=== PATIENT | female | born 1940 | race Caucasian/White ===

== ENCOUNTER → 2016-11-29 | Outpatient (CLI) | payer OTHER | LOC: FIMAGING 10:16 | PROVIDERS: ATTEND Family Medicine | DX: M25.551 Pain in right hip (principal); M51.36 Other intervertebral disc degeneration, lumbar region ==

== ENCOUNTER → 2017-02-28 | Outpatient (CLI) | payer OTHER | LOC: FIMAGING 07:42 | PROVIDERS: ATTEND Orthopaedic Surgery | DX: M23.322 Other meniscus derangements, posterior horn of medial meniscus, left knee (principal); M23.301 Other meniscus derangements, unspecified lateral meniscus, left knee; M24.10 Other articular cartilage disorders, unspecified site; M76.892 Other specified enthesopathies of left lower limb, excluding foot; M22.42 Chondromalacia patellae, left knee; M25.462 Effusion, left knee ==

== ENCOUNTER → 2017-03-08 | Outpatient (CLI) | payer OTHER | LOC: FIMAGING 10:55 | PROVIDERS: ATTEND Family Medicine | DX: Z12.31 Encounter for screening mammogram for malignant neoplasm of breast (principal) | CPT/HCPCS: G0202 ==

== ENCOUNTER → 2017-05-04 | Outpatient (CLI) | payer OTHER | LOC: FIMAGING 18:22 | PROVIDERS: ATTEND Orthopaedic Surgery | DX: M51.35 Other intervertebral disc degeneration, thoracolumbar region (principal); M12.88 Other specific arthropathies, not elsewhere classified, other specified site; M89.38 Hypertrophy of bone, other site; M99.73 Connective tissue and disc stenosis of intervertebral foramina of lumbar region ==

== ENCOUNTER → 2017-05-27 | Day surgery (SDC) | payer OTHER ==
[~2017-05-27] MED LIST: IOPAMIDOL (ISOVUE-M 300) 15 ML VIAL ONE; LIDOCAINE 1% 300 MG/30 ML SDV ONE; TRIAMCINOLONE ACETONIDE 200 MG/5 ML MDV IM ONE
== END | disposition home or self-care (01) ==
LOC: FIMAGING 12:20
PROVIDERS: ATTEND Orthopaedic Surgery
PROC: BR19YZZ Fluoroscopy of Lumbar Spine using Other Contrast (ICD-10-PCS; principal; 2017-05-27)
PROC: 3E0S3BZ Introduction of Anesthetic Agent into Epidural Space, Percutaneous Approach (ICD-10-PCS; principal; 2017-05-27)
PROC: 3E0S33Z Introduction of Anti-inflammatory into Epidural Space, Percutaneous Approach (ICD-10-PCS; principal; 2017-05-27)
DX: M54.16 Radiculopathy, lumbar region (principal)
CPT/HCPCS: J3301; Q9967

== ENCOUNTER → 2017-12-21 | Outpatient (CLI) | payer OTHER | LOC: FIMAGING 09:32 | PROVIDERS: ATTEND Family Medicine | DX: Z13.820 Encounter for screening for osteoporosis (principal); M85.89 Other specified disorders of bone density and structure, multiple sites; M81.0 Age-related osteoporosis without current pathological fracture; E28.39 Other primary ovarian failure; Z78.0 Asymptomatic menopausal state ==

== ENCOUNTER → 2018-03-10 | Outpatient (CLI) | payer OTHER | LOC: FIMAGING 10:28 | PROVIDERS: ATTEND Family Medicine | DX: Z12.31 Encounter for screening mammogram for malignant neoplasm of breast (principal) ==